=== PATIENT | male | born 2000 | race Caucasian/White ===

== ENCOUNTER 2025-02-08 11:01 | Emergency (ER) | payer OTHER, SELFPAY ==
[2025-02-08 11:05] VITALS: BP 177/84; PULSE 118; RESP 18; TEMP 37; O2SAT 99; BMI 31.4
--- NOTE | 2025-02-08 11:09 | EX.ED.GENINJ ---
HPI History of Present Illness Chief Complaint: Laceration Detail of Chief Complaint: Laceration volar distal right arm Informant: patient and family Onset/Context/Timing Onset: Today and Hours (Less than 15 minutes ago) Mechanism/Context: Work Related (Laceration from saw that he picked up incorrectly.) Location of pain/injuries: Right arm Location: Previously mentioned Current Severity: Mild Maximum Severity: Moderate Worsened by: Patient had tourniquet applied because of blood running down his arm. Relieved by: Bleeding stopped with tourniquet Associated Symptoms Associated Symptoms: Positive for Parasthesias (Right hand, suspect due to tourniquet) Narrative Narrative: Patient is a 24-year-old [id number] male. Uncertain last tetanus. He presents with laceration volar distal right arm. This a work-related injury. He states he grabbed a saw incorrectly. He reports blood was running down his arm and reason for tourniquet. He is present complaining of numbness in the hand. Tetanus Immunization: Unknown Prior similar symptoms: No Recent Illness/Hospitalization: No PFSH PFSH Medical History no medical history no medical history Home Medications ?Medication ?Instructions ?Recorded ?Last Taken ?Type NK 02/08/25 Unknown History Allergy/AdvReac Type Severity Reaction Status Date / Time No Known Allergies Allergy Verified 02/08/25 11:03 ROS ELISABET ED Integumentary Reports other Details: Laceration right arm Neurologic Neurologic: Denies paresthesias or weakness Hematologic/Lymphatic Hematologic/Lymphatic: Denies easy bleeding or easy bruising EXAM Physical Exam Const Vital Signs: 02/08/25 11:05 Temperature 98.6 F Temperature Source Oral Pulse Rate 118 H Respiratory Rate 18 Blood Pressure 177/84 H Blood Pressure Mean 115 Pulse Ox 99 Oxygen Delivery Method Room Air Positive well nourished and well developed General Appearance ED: well developed and NAD HEENT HEENT Narrative: HEENT is grossly unremarkable. Eyes PERRL and EOMs intact bilaterally Neck full ROM Resp normal respiratory effort Cardio regular rhythm, S1 normal heart sound, S2 normal heart sound and no murmurs Rate: regular rate Extremity full ROM; Negative for normal to inspection Extremity Narrative: Axillary, median, radial and ulnar function intact. Patient laceration volar distal right arm. This does not appear to penetrate the fascia. When tourniquet was taken down there was no active bleeding. Neuro oriented x3, CN's II-XII intact bilaterally, moves all extremities, no focal motor deficits and no sensory deficits noted [place] Coma Scale: document GCS findings Spontaneous Obeys Commands Oriented 15 Sensorium / Orientation: alert Psych mental status grossly normal and thought process normal Skin Skin Narrative: Laceration right arm PROC Procedures Other Procedures Procedure(s): Lacerations right arm volar surface: The larger of the 2 laceration is 9 cm. The smaller is 3 cm. Both wounds were anesthetized by local metrician using 1% lidocaine without epinephrine. The larger wound was irrigated with 250 cc of normal saline. The smaller wound was irrigated with 50 cc of normal saline. The larger wound did not violate the fascia. The basilic vein was visualized. There is no injury to the vein. There was a small branch that was lacerated and no active bleeding at this time. The 9 cm laceration was closed in 2 layers. 4 subcu stitches placed using 4-0 Vicryl. The skin was closed using 4-0 Ethilon. A total of 14 stitches placed. The 3 cm laceration was closed using 4-0 Ethilon. A total of 3 stitches placed. Discharge Plan Triage Chief Complaint: Laceration ED Provider: Marshal Lopez Dx/Rx/DC Orders Clinical Impression: Laceration of arm, right, complicated, Laceration of right upper extremity, Tachycardia Instructions: ED Laceration Extremity, ED Laceration Minimize Scars Prescriptions: No Action NK Primary Care Provider: Care Physician,No Primary Referrals: [facility] [Group of Physicians, Medical] - 2 Days for wound check NOT,DEFINED [Non-Staff, None] Activity Restrictions/Additional Instructions: Follow-up 2 days for wound check with corporate care. Stitches out 14 days. Clean wound with peroxide and Q-tip twice a day. After cleaning wound with peroxide apply bacitracin ointment. If there is any concern for infection either follow-up with corporate care or return to the emergency department Print Language: Indonesian Disposition Disposition: Home, Self Care
[2025-02-08] MEDS: Lidocaine 1% (20 ml mdv) 20 ML Vial INFILT (11:29)
[2025-02-08 12:02] VITALS: BP 177/84; PULSE 78; RESP 14; O2SAT 99
--- NOTE | 2025-02-08 12:14 | ED.RN ---
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 pt to follow up there after release for [facility] testing
[2025-02-08 12:27] VITALS: BP 148/68; PULSE 72; RESP 12; TEMP 36.6; O2SAT 99
== END 2025-02-08 12:34 | disposition home or self-care (01) ==
PROVIDERS: Emergency Provider Emergency Medicine; Visit Provider Emergency Medicine
DX: S41.111A Laceration without foreign body of right upper arm, initial encounter (principal); R00.0 Tachycardia, unspecified; X58.XXXA Exposure to other specified factors, initial encounter
CPT/HCPCS: 12004; 99284; A4216